=== PATIENT | male | born 1950 | race Caucasian/White ===

== ENCOUNTER 2018-10-24 18:31 | Inpatient (IN) | payer OTHER ==
[~2018-10-24 18:31] MED LIST: Iopamidol 370 76% 100 ML VIAL ONE
[2018-10-24] MEDS ORDERED: Morphine 4 MG/ML VIAL ONE ×2 (19:18→20:19)
[2018-10-24] MEDS ORDERED: Ondansetron PF 4 MG/2 ML Vial ONE (19:18)
[2018-10-24 19:30] LABS: #Eosinphils 0.4 thou/uL (0.0-0.7); #Lymphocytes 0.9 thou/uL (1.20-3.40); #Neutrophils 6.1 thou/uL (1.40-6.50); %Basophils 0.5 % (0.0-1.0); %Lymphocytes 10.5 % (21.0-51.0); %Monocytes 11.8 % (0.0-10.0); %Neutrophils 72.2 % (42.0-75.0); Hemoglobin 13.5 g/dL (14.0-18.0); Mean Corpuscular HGB CONC 32.8 g/dL (32.0-36.0); Mean Corpuscular Hemoglobin 31.9 pg (27.0-31.0); Mean Platelet Volume 8.7 fL (7.4-10.4); Platelet Count 73 thou/uL (130-400); RBC Distribution Width 12.7 % (11.5-14.5); Red Blood Cell (RBC) Count 4.22 mill/uL (4.70-6.10); White Blood Cell (WBC) Count 8.4 thou/uL (4.8-10.8)
[2018-10-24 19:35] LABS: MDiff Complete? YES; Platelet Morphology Comment Appears Decreased; Polychromasia SLIGHT = 2-3 cells (100X) (0-2/hpf)
[2018-10-24 19:51] LABS: ALT (SGPT) 32 U/L (8-55); AST (SGOT) 50 U/L (5-34); Albumin 2.9 g/dL (3.4-4.8); Alkaline Phosphatase 117 U/L (40-150); Anion Gap 11 mmol/L (10-20); BUN (Urea Nitrogen) 10 mg/dL (8.4-25.7); Bilirubin, Total 2.1 mg/dL (0.2-1.2); Calc. Creatinine Clearance 0 mL/min (70-130); Calcium 8.1 mg/dL (7.8-10.44); Carbon Dioxide 22 mmol/L (23-31); Chloride 105 mmol/L (98-107); Estimated GFR-MDRD Greater than 90; Globulin 3.1 g/dL (2.4-3.5); Glucose 90 mg/dL (80-115); Lipase 78 U/L (8-78); Sodium 134 mmol/L (136-145)
[2018-10-24 19:56] LABS: Bilirubin Small (Negative); Blood, Urine Large (Negative); Glucose, Urine (Dipstick) Negative (Negative); Leukocyte Negative (Negative); Nitrite Negative (Negative); Protein, Urine (Dipstick) 100 mg/dL (Neg-Trace)
[2018-10-24 19:58] LABS: Clarity Cloudy (Clear)
[2018-10-24 20:02] LABS: RBC/HPF Greater than 50 HPF (0-3)
[2018-10-24 20:03] LABS: Bacteria/HPF None Seen HPF (None Seen); Squamous Epithelial 0-3 HPF (0-3)
[2018-10-24] MEDS ORDERED: Metoclopramide HCl 10 MG/2 ML VIAL ONE (20:19)
--- NOTE | 2018-10-24 20:21 | CT ---
CT Abdomen Pelvis W Con History: Abdominal pain Comparison: None. Findings: Lung bases are clear. No pericardial effusion. Large paraesophageal varices. Highly cirrhotic nodular appearance of the liver. There is cholelithias is. Spleen is markedly enlarged. Pancreas is unremarkable. Aortic contour is nonaneurysmal. Small volume free fluid within the pelvis. Mild wall thickening of the sigmoid colon although somewha t under distended. Congestive changes of the mesentery. Congestive changes of the descending colon, transverse colon, and ascending colon. The appendix is visualized and is normal. Mild thickening of the right calyceal urothelium with a large dependent calculus measuring 1.5 x 5 x 1.7 cm. Even given its size, no significant obstruction. Hypodensity inferior pole right kidney not definitively a simple cyst. Likely reactive retroperitonea l periaortic adenopathy. Evidence of prior right inguinal hernia repair. Severe facet arthrosis of the lumbar spine. Impression: 1. Severe hepatic cirrhosis with portal hypertension, paraesophageal varices, and splenomegaly. The p ortal hypertension and cirrhosis causes vascular congestion of the bowel mesentery and retroperitoneum. Given the cirrhosis, a screening ultrasound for underlying mass not emergently is re commended. 2. Large right renal pelvis calculus with urothelial thickening without evidence of obstruction. 3. Inferior right renal pole hypodensity not definitively a cyst. This can be interrogated on subsequ ent ultrasound.
[2018-10-24 23:06] LABS: Lactic Acid 2.4 mmol/L (0.5-2.2)
[2018-10-25 00:28] VITALS: BMI 30.3
[2018-10-25] MEDS ORDERED: Acetaminophen 325 MG TAB PO PRN (00:41)
[2018-10-25] MEDS ORDERED: Ondansetron ODT 4 MG TAB SL PRN (00:41)
[2018-10-25] MEDS ORDERED: Ondansetron PF 4 MG/2 ML Vial IVP PRN (00:41)
[2018-10-25] MEDS: Sodium Chloride 0.9% 1,000 ML IV SCH ×3 (01:21→22:31)
[2018-10-25 01:23] LABS: Lactic Acid 2.6 mmol/L (0.5-2.2)
[2018-10-25] MEDS: Morphine 2 MG/ML SYRINGE SLOW IVP PRN ×5 (01:58→23:09)
[2018-10-25] MEDS ORDERED: cefTRIAXone\\ROCEPHIN 1 GM in Sodium Chloride 0.9% 100 ML IVPB SCH (02:00)
[2018-10-25] MEDS ORDERED: Loperamide HCl 2 MG CAP PO PRN (04:08)
--- NOTE | 2018-10-25 05:15 | HP ---
PRIMARY CARE DOCTOR: The patient is in senior care. CODE STATUS: Full code. TIME OF EVALUATION: 3:40 a.m. CHIEF COMPLAINT: Dysphagia, abdominal pain. HISTORY OF PRESENT ILLNESS: A 67-year-old male patient with past medical history of cirrhosis of the liver, hep C, kidney stones, urinary tract infection, hypertension. He came to the hospital after having abdominal pain in the left lower quadrant that has been on for 3 days. No clear triggers, no alleviating factors, no fever, when present is 10/10. Needing opioid medication for optimal control. Associated with nausea and vomiting. REVIEW OF SYSTEMS: CONSTITUTIONAL: No fever or chills. The patient has generalized weakness. RESPIRATORY: No cough, sputum production, shortness of breath. CARDIOVASCULAR: No chest pain or palpitation. GASTROINTESTINAL: The patient has nausea and vomiting. No diarrhea. The patient reported abdominal pain as described in HPI. SCRAP WORKER: No dizziness, headache, or feeling lightheaded. GENITOURINARY: No burning on urination. EXTREMITIES: No leg swelling. All other systems were reviewed and negative except for the findings mentioned above. PAST MEDICAL HISTORY: As mentioned in the HPI. PAST SURGICAL HISTORY: The patient has no surgical history. SOCIAL HISTORY: No alcohol. No drugs. No smoking history. KNOWN ALLERGIES: No known drug allergies. FAMILY HISTORY: Reviewed and noncontributory to current presentation. Father had cancer. REPORTED MEDICATIONS: 1. Carvedilol. 2. Lasix. 3. Lisinopril. 4. Cyanocobalamin. 5. Folic acid. 6. Lactulose. 7. Loperamide. 8. Promethazine. 9. Xifaxan. 10. Bactrim DS. PHYSICAL EXAMINATION: VITAL SIGNS: On presentation; blood pressure 116/79 with heart rate of 75, respiratory rate was 16, temperature 98.9, pain was 10/10, oxygen saturation was 96% on room air. GENERAL: The patient is alert, oriented, no acute distress. HEENT: Eyes, normal conjunctivae. Moist oral mucosa. Anicteric. No JVD. RESPIRATORY: Bilateral air entry. No rales. No wheezes. Symmetric expansion. CARDIOVASCULAR: Normal rate, regular rhythm. No murmurs. No gallop. No edema. ABDOMEN: Soft. Normal bowel sounds. The patient has diffuse tenderness in the lower abdomen. MUSCULOSKELETAL: He has baseline range of motion and strength. SKIN: Warm and intact. No pallor. No rash. No redness. Capillary refill seems to be intact. NEURO: No evidence of any new focal weakness. Cranial nerves seems to be intact. PSYCH: The patient is in good mood. No anxiety. Optimal judgment. IMAGING: Abdomen and pelvis CT were done. The patient has severe hepatic cirrhosis with portal hypertension, paraesophageal varices, and splenomegaly with portal hypertension and cirrhosis causes vascular congestion of the bowel mesentery, and retroperitoneum. Given the cirrhosis, renal ultrasound for the underlying mass recommended. Large right renal pelvis calculus with urothelial thickening with no evidence of obstruction. Inferior right renal pole hypodensity, not definitively a cyst, this can be interrogated on subsequent ultrasound. LABORATORY DATA: Labs were reviewed. The patient's white count is 8.4, hemoglobin 13.5, MCV 97, platelet count 73. Chemistry; sodium 134, potassium 4.0, chloride 105, carbon dioxide 22, anion gap 11, BUN and creatinine were normal. GFR greater than 90. Lactic acid 2.4, the second one 2.6. Total bilirubin 2.1, AST 50, ALT 32, alkaline phosphatase 117, albumin 2.9, globulin 3.1. Urine; white count 11 to 20 and rbc's greater than 50. ASSESSMENT AND PLAN: The patient will be placed in the hospital with following medical problems. 1. Urinary tract infection. The patient is on antibiotics. We will follow cultures and adjust antibiotics as per sensitivity. 2. Cirrhosis of the liver. We will reconcile home medications. This is chronic, seems to be stable. 3. Abdominal pain that was severe, needing opioid medication for optimal control. Unclear if the patient may have any other intraabdominal problems. Initially was concerned for mesenteric ischemia since the abdominal pain might be associated with pain. We will monitor. We will treat symptomatically. The patient is already on antibiotics. 4. Thrombocytopenia, likely secondary to underlying liver disease. No bleeding. We will monitor. 5. Hyponatremia, sodium 134. We will monitor. No need for any acute intervention at this point. 6. Lactic acidosis, likely secondary to underlying liver cirrhosis. The patient also has an underlying infection. We will treat underlying condition. 7. Hyperbilirubinemia, likely secondary to liver cirrhosis, reconcile home medications. We will follow liver cirrhosis treatment. 8. Deep venous thrombosis prophylaxis. Job ID: [id number]
[2018-10-25 05:49] LABS: #Eosinphils 0.5 thou/uL (0.0-0.7); #Monocytes 1.6 thou/uL (0.11-0.59); #Neutrophils 8.8 thou/uL (1.40-6.50); %Basophils 0.3 % (0.0-1.0); %Eosinophils 4.4 % (0.0-10.0); %Lymphocytes 8.6 % (21.0-51.0); %Neutrophils 73.9 % (42.0-75.0); Hemoglobin 12.8 g/dL (14.0-18.0); Mean Corpuscular HGB CONC 32.7 g/dL (32.0-36.0); Mean Corpuscular Hemoglobin 32.1 pg (27.0-31.0); Mean Corpuscular Volume 98.3 fL (78.0-98.0); Mean Platelet Volume 8.6 fL (7.4-10.4); Platelet Count 73 thou/uL (130-400); RBC Distribution Width 12.7 % (11.5-14.5); Red Blood Cell (RBC) Count 3.98 mill/uL (4.70-6.10)
[2018-10-25 05:59] LABS: Lactic Acid 2.1 mmol/L (0.5-2.2)
[2018-10-25] MEDS ORDERED: Piperacillin/Tazobactam 4.5 GM in Sodium Chloride 0.9% 100 ML IVPB SCH (06:00)
[2018-10-25 06:03] LABS: Anion Gap 10 mmol/L (10-20); BUN (Urea Nitrogen) 10 mg/dL (8.4-25.7); Calc. Creatinine Clearance 121 mL/min (70-130); Calcium 7.5 mg/dL (7.8-10.44); Carbon Dioxide 23 mmol/L (23-31); Chloride 105 mmol/L (98-107); Estimated GFR-MDRD Greater than 90; Glucose 97 mg/dL (80-115); Potassium 4.5 mmol/L (3.5-5.1); Sodium 133 mmol/L (136-145)
[2018-10-25 08:34] LABS: ALT (SGPT) 27 U/L (8-55); AST (SGOT) 41 U/L (5-34); Albumin 2.6 g/dL (3.4-4.8); Alkaline Phosphatase 105 U/L (40-150); Bilirubin, Direct 0.8 mg/dL (0.1-0.3); Bilirubin, Total 1.5 mg/dL (0.2-1.2); Protein, Total 5.4 g/dL (5.8-8.1)
[2018-10-25] MEDS: Furosemide 20 MG TAB PO SCH ×2 (08:37→23:27)
[2018-10-25] MEDS: Folic Acid 1 MG TAB PO SCH (08:39)
[2018-10-25] MEDS: Lisinopril 20 MG TAB PO SCH (08:39)
[2018-10-25] MEDS: Piperacillin/Tazobactam 4.5 GM in Sodium Chloride 0.9% 100 ML IVPB SCH ×2 (08:39→17:17)
[2018-10-25] MEDS: Carvedilol 3.125 MG TAB PO SCH ×2 (08:39→22:23)
[2018-10-25] MEDS ORDERED: Cyanocobalamin 1000 MCG/ML VIAL IM SCH (09:00)
[2018-10-25] MEDS: Rifaximin 550 MG TAB PO SCH ×2 (09:00→21:00)
[2018-10-25] MEDS ORDERED: Promethazine 25 MG TAB PO SCH (09:00)
[2018-10-25 12:35] LABS: INR-International Normal Ratio 1.5; PTT 34.6 SEC (22.9-36.1); Prothrombin Time 18.2 SEC (12.0-14.7)
--- NOTE | 2018-10-25 13:07 | ULT ---
US Gallbladder RUQ: 10/25/2018 11:42 AM CLINICAL HISTORY: Abdominal pain with cirrhosis. STUDY: Limited right upper quadrant ultrasound of abdomen. COMPARISON: CT abdomen/pelvis 10/24/2018 FINDINGS: Liver: Size: Normal. Echogenicity: Increased Contour: Nodular consistent with cirrhosis. Mass: None. Bile ducts: No intrahepatic or extrahepatic biliary dilatation. Common bile duct measures 5 mm. Gallbladder: Cholelithiasis. Pancreas: Head and body appear normal; tail obscured by bowel gas. Right kidney: No pelvicalyceal dilatation. The right renal cyst seen on CT is only partially visualiz ed. Right kidney measuring 11.9 cm in length. IMPRESSION: 1. Cirrhosis without suspicious liver mass 2. Cholelithiasis 3. Right renal cyst
--- NOTE | 2018-10-25 13:27 | RAD ---
EXAM: Chest 2 views: HISTORY: Fever and epigastric abdominal pain COMPARISON: None. FINDINGS: There is a normal-sized cardiomediastinal silhouette. There is no evidence of consolidation, mass, or pleural effusion. Degenerative changes are seen in the spine. IMPRESSION: No evidence of acute cardiopulmonary disease
--- NOTE | 2018-10-25 16:37 | PDOC.HOSPP ---
- Subjective Encounter Date: 10/25/18 Encounter Time: 13:35 Subjective: Patient with LLQ abdominal pain, has been receiving morphine which he states has been helping. His pain recurs and then gradually worsens. Currently it is an 8/10 in severity, relieved to a 2/10 with morphine. States his pain is intermittent and feels as if someone is gripping his insides. Denies any n/v. Has been experiencing diarrhea. No blood in the stool. Reports suprapubic discomfort as well as right flank pain, he is aware he has a stone, states it is chronic. No chest pain, palpitations or shortness of breath. - Objective Vital Signs & Weight: Vital Signs (12 hours) Temp Pulse Resp BP Pulse Ox 10/25/18 15:53 98.6 F 78 20 124/59 L 95 10/25/18 13:36 99.1 F 79 20 115/61 96 10/25/18 07:48 99.6 F 83 18 113/61 95 Weight Admit Weight 205 lb 9.6 oz Weight 205 lb 9.6 oz I&O: 10/24/18 10/25/18 10/26/18 06:59 06:59 06:59 Intake Total 898 Balance 898 Result Diagrams: 10/28/18 06:07 10/27/18 06:13 ROS - Review of Systems Constitutional: reports: fever (Low grade temp yesterday.), weakness Eyes: denies: pain, vision change, conjunctivae inflammation, eyelid inflammation, redness, other ENT: denies: ear pain, ear discharge, nose pain, nose discharge, nose congestion , mouth pain, mouth swelling, throat pain, throat swelling, other Respiratory: denies: cough, dry, shortness of breath, hemoptysis, SOB with excertion, pleuritic pain, sputum, wheezing, other Cardiovascular: denies: chest pain, palpitations, orthopnea, paroxysmal noc. dyspnea, edema, light headedness, other Gastrointestinal: reports: abdominal pain, diarrhea Genitourinary: denies: dysuria, frequency, incontinence, hematuria, retention, other Musculoskeletal: denies: neck pain, shoulder pain, arm pain, back pain, hand pain, leg pain, foot pain, other Skin: denies: rash, lesions, abrahan, bruising, other Neurological: denies: weakness, numbness, incoordination, change in speech, confusion, seizures, other - Medication Medications: Active Medications Generic Name Dose Route Start Last Admin Trade Name Freq PRN Reason Stop Dose Admin Carvedilol 3.125 mg 10/25/18 09:00 10/25/18 08:39 Coreg PO 3.125 mg BID CECY Administration Cyanocobalamin 100 mcg 10/25/18 09:00 10/25/18 08:35 Vitamin B-12 IM Not Given Q28D [facility] Folic Acid 1 mg 10/25/18 09:00 10/25/18 08:39 Folvite PO 1 mg DAILY CECY Administration Furosemide 20 mg 10/25/18 09:00 10/25/18 08:37 Lasix PO Not Given BID CECY Sodium Chloride 1,000 mls @ 100 mls/hr 10/25/18 00:41 10/25/18 13:14 Normal Saline 0.9% IV 10/26/18 11:30 1,000 mls .Q10H CECY Administration Piperacillin Sod/Tazobactam 100 mls @ 200 mls/hr 10/25/18 08:00 10/25/18 08: 39 Sod 4.5 gm/ Sodium Chloride IVPB 100 mls Q8H CECY Administration Lactulose 20 gm 10/25/18 09:00 10/25/18 08:34 Lactulose PO Not Given BID [facility] Lisinopril 20 mg 10/25/18 09:00 10/25/18 08:39 Zestril PO 20 mg DAILY CECY Administration Morphine Sulfate 2 mg 10/25/18 01:35 10/25/18 16:24 Morphine SLOW IVP 2 mg Q4H PRN Administration Severe Pain (7-10) Promethazine HCl 25 mg 10/25/18 09:00 10/25/18 08:37 Phenergan PO Not Given BID [facility] Sodium Chloride 10 ml 10/25/18 09:00 10/25/18 08:45 Flush - Normal Saline IVF Not Given Q12HR [facility] - Exam NAD, awake alert, ill appearing (appears to be in discomfort) Eye: PERRL, anicteric sclera ENT: normocephalic atraumatic, no oropharyngeal lesions, moist mucosa Neck: supple, symmetric, no JVD, no thyromegaly, no lymphadenopathy, no carotid bruit Heart: RRR, no murmur, no gallops, no rubs, normal peripheral pulses Respiratory: CTAB, no wheezes, no rales, no ronchi, normal chest expansion, no tachypnea, normal percussion Gastrointestinal: soft, non-tender, non-distended, normal bowel sounds, no palpable masses, no guarding, no rigidity, tender to palpation (LLQ and suprapubic region) Extremities: no cyanosis, no clubbing, no edema Skin: normal turgor, no lesions Neurological: CN's grossly intact, normal sensation to touch Musculoskeletal: normal tone, normal strength Hosp A/P (1) Abdominal pain Code(s): R10.9 - UNSPECIFIED ABDOMINAL PAIN Status: Acute Qualifiers: Abdominal location: generalized Qualified Code(s): R10.84 - Generalized abdominal pain Plan: s/p CT: severe hepatic cirrhosis with portal hypertension, paraesophageal varices and splenomegaly. Portal hypertension and cirrhosis vascular congestion of the bowel mesentery. Cholelithiasis present. Pancreas unremarkable. Spleen markedly enlarged. small volume free fluid within pelvis. Mild wall thickening of the sigmoid colon, congestive changes of mesentery, descending colon, ascending colon. Appendix normal. Mild thickening of right calceal urothelium with large dependent calculus measuring 1.5x5x1.7 cm, without obstruction. Hypodensity inferior pole right kidney, likely reactive retroperitoneal adenopathy. No evidence of any abnormality to explain LLQ pain. Given UTI and suprapubic discomfort, post void bladder scan requested to ensure no retention. Patient states only urinating 1/2 cup despite receiving IV fluids. Procalcitonin added to labs. Abdo US and CXR requested. (2) UTI (urinary tract infection) Status: Acute Plan: Continue abx. Urine culture requested. (3) Diarrhea Code(s): R19.7 - DIARRHEA, UNSPECIFIED Status: Acute Plan: Patient is on lactulose. Stool cultures/c.diff requested. (4) Hepatitis C Code(s): B19.20 - UNSPECIFIED VIRAL HEPATITIS C WITHOUT HEPATIC COMA Status: Chronic Qualifiers: Viral hepatitis chronicity: chronic - Plan DVT proph w/SCDs Will discuss further with Dr. Gustafson. Will place patient on clear liquid diet. Agree and discussed with Silvia Peña
[2018-10-25] MEDS ORDERED: Promethazine 25 MG TAB PO PRN (17:38)
[2018-10-25] MEDS ORDERED: Metoclopramide HCl 10 MG/2 ML VIAL IVP PRN (17:52)
[2018-10-25] MEDS: Vancomycin HCl 25 MG/ML Oral PO SCH (18:14)
[2018-10-25] MEDS: traMADol HCl 50 MG TAB PO PRN (18:36)
--- NOTE | 2018-10-25 18:50 | PDOC.EVN ---
Event Note - Event Note Event Note: Mr. Chavez was seen along with Silvia Clark PA-c. He is complaining of diarrhea , and lower abdominal pain. On exam it is noted that he has suprapubic tenderness as well as left lower quadrant tenderness. The pain seem out of proportion to the exam. His C. Diff has become positive- will treat for C. Diff colitis, but will need to have a low index of suspicion for ischemic bowel.
[2018-10-25] MEDS ORDERED: Prevnar 13-Val Conj/PF 0.5 ML SYRINGE IM ONE (21:00)
[2018-10-26] MEDS: Piperacillin/Tazobactam 4.5 GM in Sodium Chloride 0.9% 100 ML IVPB SCH ×2 (00:38→08:24)
[2018-10-26] MEDS: Vancomycin HCl 25 MG/ML Oral PO SCH ×5 (03:01→20:31)
[2018-10-26] MEDS: traMADol HCl 50 MG TAB PO PRN ×3 (04:04→16:47)
[2018-10-26 06:33] LABS: #Basophils 0.1 thou/uL (0.0-0.2); #Lymphocytes 1.5 thou/uL (1.20-3.40); #Monocytes 1.4 thou/uL (0.11-0.59); #Neutrophils 8.7 thou/uL (1.40-6.50); %Basophils 0.4 % (0.0-1.0); %Eosinophils 7.7 % (0.0-10.0); %Lymphocytes 12.2 % (21.0-51.0); %Neutrophils 68.8 % (42.0-75.0); Hemoglobin 12.1 g/dL (14.0-18.0); Mean Corpuscular HGB CONC 32.6 g/dL (32.0-36.0); Mean Corpuscular Hemoglobin 32.1 pg (27.0-31.0); Mean Corpuscular Volume 98.4 fL (78.0-98.0); Mean Platelet Volume 8.4 fL (7.4-10.4); Platelet Count 73 thou/uL (130-400); RBC Distribution Width 12.7 % (11.5-14.5); Red Blood Cell (RBC) Count 3.77 mill/uL (4.70-6.10); White Blood Cell (WBC) Count 12.6 thou/uL (4.8-10.8)
[2018-10-26 06:41] LABS: Anion Gap 8 mmol/L (10-20); BUN (Urea Nitrogen) 13 mg/dL (8.4-25.7); Calc. Creatinine Clearance 121 mL/min (70-130); Calcium 7.5 mg/dL (7.8-10.44); Carbon Dioxide 21 mmol/L (23-31); Chloride 109 mmol/L (98-107); Estimated GFR-MDRD Greater than 90; Glucose 87 mg/dL (80-115); Potassium 3.8 mmol/L (3.5-5.1); Sodium 134 mmol/L (136-145)
[2018-10-26] MEDS: Carvedilol 3.125 MG TAB PO SCH ×2 (08:23→20:31)
[2018-10-26] MEDS: Furosemide 20 MG TAB PO SCH ×2 (08:23→15:16)
[2018-10-26] MEDS: Acetaminophen 325 MG TAB PO PRN ×2 (08:23→16:47)
[2018-10-26] MEDS: Folic Acid 1 MG TAB PO SCH (08:23)
[2018-10-26] MEDS: Lisinopril 20 MG TAB PO SCH (08:23)
[2018-10-26] MEDS: Sodium Chloride 0.9% 1,000 ML IV SCH (08:25)
[2018-10-26] MEDS: Rifaximin 550 MG TAB PO SCH ×2 (09:00→21:00)
[2018-10-26 09:35] LABS: Lactic Acid 1.7 mmol/L (0.5-2.2)
[2018-10-26 09:41] LABS: ALT (SGPT) 26 U/L (8-55); AST (SGOT) 36 U/L (5-34); Albumin 2.5 g/dL (3.4-4.8); Alkaline Phosphatase 89 U/L (40-150); Bilirubin, Direct 0.8 mg/dL (0.1-0.3); Bilirubin, Total 1.5 mg/dL (0.2-1.2); Protein, Total 5.1 g/dL (5.8-8.1)
--- NOTE | 2018-10-26 12:48 | CT ---
CT ANGIOGRAM ABDOMEN WITH IV CONTRAST AND 3D RECONSTRUCTIONS: HISTORY: Elevated white blood cell count and abdominal pain. Evaluate for mesenteric ischemia. COMPARISON: 10/24/2018. FINDINGS: Again noted is a small left pleural effusion and associated passive atelectasis. There is minimal at electasis at the right lung base. Again noted is cirrhotic morphology of the liver which is small in volume. There is a subcentimeter hypodense focus again seen in the caudate lobe of the liver which is too small to characterize. Ther e is a small enhancing lesion seen within the inferior aspect posterior segment right hepatic lobe me asuring 2 cm also present on prior exam and unchanged. This could be related to regenerating nodule, small hepatocellular carcinoma could not be entirely excluded. This is unable to be further evaluat ed on this exam. The spleen remains enlarged, and there are very large and multiple esophageal varices with varices in the region of gastrohepatic ligament. The gallbladder is distended measuring 10.8 cm in length. There is evidence of cholelithiasis. Ther e is a suggestion of mild gallbladder wall thickening and edema with mild adjacent inflammatory rodriguez es seen. This could potentially be related to cholecystitis in the correct clinical scenario. There is a small amount of free fluid seen in each paracolic gutter also seen on the prior study but mildly increased from that exam. A small amount of free fluid is seen in the central pelvis with mil d mesenteric edema also again seen. The mild mesenteric edema may be related to portal hypertension. The pancreas, bilateral adrenal glands, and left kidney demonstrate a normal CT appearance. Inferior pole right renal cystic lesion is again seen which, again, cannot be characterized as a simple cyst. There is a large calculus in the right renal pelvis without overt hydronephrosis. There is mild th ickening of the urothelium of the renal pelvis. Vascular calcifications are seen in the abdominal aorta involving the common iliac arteries. The celiac and superior mesenteric arteries are patent. The origin of the RUSTAM is not well seen due t o dense vascular calcifications, but there is probably mild narrowing at the origin of the inferior m esenteric artery. There are 2 patent left renal arteries with a single patent right renal artery. There is mild increase in number of retroperitoneal lymph nodes probably reactive in origin. Tiny fat-containing umbilical hernia is again seen. Degenerative changes are noted in the spine. There is suggested mild colonic wall thickening some of which is probably related to incomplete diste ntion, but colitis is a possibility. Loops of small bowel are normal in caliber without bowel wall t hickening appreciated. IMPRESSION: 1. Evidence of cirrhosis with portal hypertension, paraesophageal varices, and splenomegaly again pr esent. 2. Enhancing mass measuring 2 cm in the right hepatic lobe. This could be related to regenerating n odule, but hepatocellular carcinoma is a possibility. Correlation with alphafetoprotein level is rec ommended. 3. Distention of the gallbladder with cholelithiasis and mild gallbladder wall thickening. There is minimal adjacent stranding, but there is generalized mesenteric edema likely related to vascular con gestion secondary to portal hypertension. However, cholecystitis in the correct clinical scenario co uld not be entirely excluded. 4. Large calculus right renal pelvis without overt hydronephrosis. 5. Stable cystic lesion inferior pole right kidney which cannot be characterized as a simple cyst ba sed on this exam. 6. Suggested mild colonic wall thickening, some of which could be related to incomplete distention, but findings are worrisome for colitis which may be infectious or inflammatory in etiology. 7. Small amount of free fluid and mesenteric edema again likely related to vascular congestion secon edgardo to portal hypertension. 8. The celiac and superior mesenteric arteries are patent with at least mild narrowing at the origin of the inferior mesenteric artery. 9. Small fat-containing umbilical hernia. 10. Small left pleural effusion with elevation of the left hemidiaphragm. POS: DEEPAC
[2018-10-26] MEDS ORDERED: Saccharomyces boulardii 250 MG CAP PO SCH (15:45)
[2018-10-26] MEDS ORDERED: ISOVUE-370 76%-LOCM 1 ML ONE (16:19)
--- NOTE | 2018-10-26 17:18 | PDOC.HOSPP ---
- Subjective Encounter Date: 10/26/18 Encounter Time: 17:17 Subjective: Patient with persisting abdominal pain and severe diarrhea. He states he is trying not to ask for morphine and doing is best to tolerate the pain. The tramadol/acetaminophen has helped to ease it. Reports diffuse abdominal discomfort. No n/v. No fevers or chills. Denies any chest pain or sob. - Objective Vital Signs & Weight: Vital Signs (12 hours) Temp Pulse Resp BP BP Pulse Ox 10/26/18 16:16 99 10/26/18 15:57 97.7 F 77 17 137/68 99 10/26/18 12:00 97.6 F 66 16 92/50 L 96 10/26/18 08:23 120/56 L 10/26/18 08:15 97.3 F L 74 18 120/56 L 96 Weight Admit Weight 205 lb 9.6 oz Weight 205 lb 9.6 oz I&O: 10/25/18 10/26/18 10/27/18 06:59 06:59 06:59 Intake Total 034 571 9215 Output Total 6 Balance 444 535 0130 Result Diagrams: 10/26/18 06:19 10/26/18 06:19 ROS - Review of Systems Constitutional: reports: chills, malaise. denies: fever, sweats, weakness, other Eyes: denies: pain, vision change, conjunctivae inflammation, eyelid inflammation, redness, other ENT: denies: ear pain, ear discharge, nose pain, nose discharge, nose congestion , mouth pain, mouth swelling, throat pain, throat swelling, other Respiratory: denies: cough, dry, shortness of breath, hemoptysis, SOB with excertion, pleuritic pain, sputum, wheezing, other Cardiovascular: denies: chest pain, palpitations, orthopnea, paroxysmal noc. dyspnea, edema, light headedness, other Gastrointestinal: reports: abdominal pain, diarrhea. denies: nausea, vomitting , constipation, melena, hematochezia, other Genitourinary: denies: dysuria, frequency, incontinence, hematuria, retention, other Musculoskeletal: denies: neck pain, shoulder pain, arm pain, back pain, hand pain, leg pain, foot pain, other Skin: denies: rash, lesions, abrahan, bruising, other Neurological: denies: weakness, numbness, incoordination, change in speech, confusion, seizures, other - Medication Medications: Active Medications Generic Name Dose Route Start Last Admin Trade Name Freq PRN Reason Stop Dose Admin Acetaminophen 325 mg 10/25/18 07:29 10/26/18 16:47 Tylenol PO 325 mg Q4H PRN Administration Headache/Fever or Pain Carvedilol 3.125 mg 10/25/18 09:00 10/26/18 08:23 Coreg PO 3.125 mg BID [facility] Administration Cyanocobalamin 100 mcg 10/25/18 09:00 10/25/18 08:35 Vitamin B-12 IM Not Given Q28D [facility] Folic Acid 1 mg 10/25/18 09:00 10/26/18 08:23 Folvite PO 1 mg DAILY [facility] Administration Furosemide 20 mg 10/26/18 09:00 10/26/18 15:16 Lasix PO 20 mg 0900,1400 [facility] Administration Lisinopril 20 mg 10/25/18 09:00 10/26/18 08:23 Zestril PO 20 mg DAILY [facility] Administration Metoclopramide HCl 10 mg 10/25/18 17:52 10/25/18 22:27 Reglan IVP 10 mg Q6H PRN Administration Nausea/Vomiting Morphine Sulfate 2 mg 10/25/18 01:35 10/25/18 23:09 Morphine SLOW IVP 2 mg Q4H PRN Administration Severe Pain (7-10) Saccharomyces Boulardii 250 mg 10/26/18 15:45 10/26/18 16:47 Florastor PO 10/26/18 17:45 250 mg NOW CECY Administration Sodium Chloride 10 ml 10/25/18 09:00 10/26/18 08:25 Flush - Normal Saline IVF Not Given Q12HR [facility] Tramadol HCl 50 mg 10/25/18 17:49 10/26/18 16:47 Ultram PO 50 mg Q4H PRN Administration Pain Vancomycin HCl 125 mg 10/26/18 03:00 10/26/18 15:16 First Vancomycin PO 11/04/18 21:01 5 ml 0300,0900,1500,2100 [facility] Administration - Exam NAD, awake alert, ill appearing General - other findings: Patient appears cachectic with facial wasting. Eye: PERRL, anicteric sclera ENT: normocephalic atraumatic, no oropharyngeal lesions ENT - other findings: Poor dentition Neck: supple, symmetric, no lymphadenopathy Heart: RRR, no murmur Respiratory: CTAB, no wheezes, no rales, no ronchi, normal chest expansion Gastrointestinal: soft, no palpable masses, tender to palpation Gastrointestinal - other findings: hyperactive bowel sounds. Extremities: no cyanosis, no clubbing, no edema Skin: no lesions, no rashes Skin - other findings: Patient appears pale Neurological: CN's grossly intact, normal sensation to touch Musculoskeletal: normal tone, normal strength Psychiatric: normal affect, normal behavior, A&O x 3 Hosp A/P (1) C. difficile colitis Code(s): A04.72 - ENTEROCOLITIS D/T CLOSTRIDIUM DIFFICILE, NOT SPCF RECUR Status: Acute Plan: Symptoms persisting without much improvement this morning. Patient therefore underwent CTA to assess for messenteric ischemia. States after contrast given, felt immediate relief. Pain has recurred but not as severe. Discussed with Dr. Rudolph, advised to add-on Flagyl as well as probiotic. (2) Abdominal pain Code(s): R10.9 - UNSPECIFIED ABDOMINAL PAIN Status: Acute Plan: Morphine discontinued, BP slightly low. Will use tramadol for pain. (3) Diarrhea Code(s): R19.7 - DIARRHEA, UNSPECIFIED Status: Acute (4) Hepatitis C Code(s): B19.20 - UNSPECIFIED VIRAL HEPATITIS C WITHOUT HEPATIC COMA Status: Chronic Plan: S/p treatment, was seeing a liver specialist in [place]. AFP added on. - Plan Continue clear liquid diet. ADDENDUM: CTA done, showed a mass in the liver, patient states he was told he had a mass before. Unsure what it was at that time. No evidence of messenteric ischemia. Noted to have colitis, associated with cdiff infection. Continue abx. Continue to monitor. BP improved. If becomes hypotensive, will require additional fluid, for now encourage oral fluid intake.
[2018-10-26] MEDS: metroNIDAZOLE 500 MG TAB PO SCH (20:31)
[2018-10-27] MEDS: Vancomycin HCl 25 MG/ML Oral PO SCH ×4 (02:08→21:06)
[2018-10-27 06:42] LABS: #Basophils 0.1 thou/uL (0.0-0.2); #Eosinphils 1.3 thou/uL (0.0-0.7); #Lymphocytes 1.8 thou/uL (1.20-3.40); #Monocytes 1.1 thou/uL (0.11-0.59); #Neutrophils 5.7 thou/uL (1.40-6.50); %Basophils 0.9 % (0.0-1.0); %Eosinophils 12.6 % (0.0-10.0); %Lymphocytes 18.2 % (21.0-51.0); %Neutrophils 57.3 % (42.0-75.0); Mean Corpuscular HGB CONC 32.4 g/dL (32.0-36.0); Mean Corpuscular Hemoglobin 31.7 pg (27.0-31.0); Mean Platelet Volume 8.4 fL (7.4-10.4); Platelet Count 91 thou/uL (130-400); RBC Distribution Width 12.8 % (11.5-14.5); Red Blood Cell (RBC) Count 4.09 mill/uL (4.70-6.10)
[2018-10-27 06:56] LABS: Anion Gap 8 mmol/L (10-20); BUN (Urea Nitrogen) 13 mg/dL (8.4-25.7); Calc. Creatinine Clearance 121 mL/min (70-130); Calcium 7.7 mg/dL (7.8-10.44); Carbon Dioxide 25 mmol/L (23-31); Chloride 106 mmol/L (98-107); Estimated GFR-MDRD Greater than 90; Glucose 81 mg/dL (80-115); Sodium 135 mmol/L (136-145)
[2018-10-27] MEDS: Rifaximin 550 MG TAB PO SCH (09:00)
[2018-10-27] MEDS: metroNIDAZOLE 500 MG TAB PO SCH ×4 (09:12→23:58)
[2018-10-27] MEDS: Lisinopril 20 MG TAB PO SCH (09:12)
[2018-10-27] MEDS: Saccharomyces boulardii 250 MG CAP PO SCH (09:12)
[2018-10-27] MEDS: Furosemide 20 MG TAB PO SCH ×2 (09:13→14:30)
[2018-10-27] MEDS: Carvedilol 3.125 MG TAB PO SCH ×2 (09:13→21:06)
[2018-10-27] MEDS: Folic Acid 1 MG TAB PO SCH (09:13)
--- NOTE | 2018-10-27 20:39 | PDOC.HOSPP ---
- Subjective Encounter Date: 10/27/18 Encounter Time: 20:30 Subjective: f/u for c. difficile colitis on Metronidazole/Vancomycin. + abd pain and cramping. - Objective Vital Signs & Weight: Vital Signs (12 hours) Temp Pulse Resp BP BP Pulse Ox 10/27/18 16:00 98.1 F 66 18 115/66 98 10/27/18 11:52 98.2 F 60 18 111/69 97 10/27/18 09:12 114/70 10/27/18 09:06 98 Weight Admit Weight 205 lb 9.6 oz Weight 205 lb 9.6 oz I&O: 10/26/18 10/27/18 10/28/18 06:59 06:59 06:59 Intake Total 440 2610 1500 Output Total 6 Balance 434 2610 1500 Result Diagrams: 10/27/18 06:13 10/27/18 06:13 Additional Labs: Microbiology 10/25/18 Unknown Stool - Pending C. difficile GDH Antigen & Toxins - Final 10/25/18 Unknown Stool Stool Lactoferrin - Final 10/25/18 Unknown Stool Rapid Parasite Screen - Final 10/25/18 Unknown Stool Campylobacter Antigen Assay - Final 10/25/18 Unknown Stool Shiga Toxin Test - Final 10/24/18 19:32 Urine voided Urine Culture - Final NO GROWTH AT 36 HOURS 10/25/18 Unknown Stool Stool Culture - Preliminary 10/25/18 07:02 Venous blood - Right Hand Blood Culture - Preliminary NO GROWTH AT 48 HOURS 10/25/18 07:02 Venous blood - Left Hand Blood Culture - Preliminary NO GROWTH AT 48 HOURS Laboratory Tests 10/25/18 10/25/18 10/26/18 05:33 12:18 06:19 WBC 12.0 H Plt Count 73 L Sodium 134 L Carbon Dioxide 21 L Lactic Acid Ammonia 63 Tumor Marker AFP 10/26/18 10/26/18 10/26/18 06:19 09:12 13:09 WBC 12.6 H Plt Count 73 L Sodium Carbon Dioxide Lactic Acid 1.7 Ammonia Tumor Marker AFP 2.8 Radiology Reviewed by me: Yes (CTA abd - + cirrhosis, varices, patent vessels, + colitis) ROS - Medication Medications: Active Medications Generic Name Dose Route Start Last Admin Trade Name Freq PRN Reason Stop Dose Admin Acetaminophen 325 mg 10/25/18 07:29 10/26/18 16:47 Tylenol PO 325 mg Q4H PRN Administration Headache/Fever or Pain Carvedilol 3.125 mg 10/25/18 09:00 10/27/18 09:13 Coreg PO 3.125 mg BID [facility] Administration Cyanocobalamin 100 mcg 10/25/18 09:00 10/25/18 08:35 Vitamin B-12 IM Not Given Q28D [facility] Folic Acid 1 mg 10/25/18 09:00 10/27/18 09:13 Folvite PO 1 mg DAILY [facility] Administration Furosemide 20 mg 10/26/18 09:00 10/27/18 14:30 Lasix PO Not Given 0900,1400 [facility] Lisinopril 20 mg 10/25/18 09:00 10/27/18 09:12 Zestril PO 20 mg DAILY [facility] Administration Metoclopramide HCl 10 mg 10/25/18 17:52 10/25/18 22:27 Reglan IVP 10 mg Q6H PRN Administration Nausea/Vomiting Metronidazole 500 mg 10/27/18 18:00 10/27/18 18:15 Flagyl PO 500 mg Q6HR [facility] Administration Morphine Sulfate 2 mg 10/25/18 01:35 10/25/18 23:09 Morphine SLOW IVP 2 mg Q4H PRN Administration Severe Pain (7-10) Saccharomyces Boulardii 250 mg 10/27/18 09:00 10/27/18 09:12 Florastor PO 250 mg DAILY [facility] Administration Sodium Chloride 10 ml 10/25/18 09:00 10/27/18 09:16 Flush - Normal Saline IVF Not Given Q12HR [facility] Tramadol HCl 50 mg 10/25/18 17:49 10/26/18 16:47 Ultram PO 50 mg Q4H PRN Administration Pain Vancomycin HCl 125 mg 10/26/18 03:00 10/27/18 14:30 First Vancomycin PO 11/04/18 21:01 5 ml 0300,0900,1500,2100 [facility] Administration - Exam NAD, awake alert Eye: PERRL, anicteric sclera ENT: normocephalic atraumatic, no oropharyngeal lesions Neck: supple, symmetric, no JVD, no thyromegaly, no lymphadenopathy Heart: RRR, no murmur, no gallops, no rubs, normal peripheral pulses Respiratory: CTAB, no wheezes, no rales, no ronchi, normal chest expansion Gastrointestinal: soft, non-distended, normal bowel sounds, no palpable masses, no guarding Gastrointestinal - other findings: mild TTP diffusely Extremities: no cyanosis, no clubbing, no edema Skin: normal turgor Neurological: CN's grossly intact, no focal deficits, no new deficit Musculoskeletal: normal tone, normal strength Psychiatric: normal affect, A&O x 3 Hosp A/P (1) C. difficile colitis Code(s): A04.72 - ENTEROCOLITIS D/T CLOSTRIDIUM DIFFICILE, NOT SPCF RECUR Status: Acute Plan: Continue Vancomycin/Flagyl, Probiotics (2) Abdominal pain Code(s): R10.9 - UNSPECIFIED ABDOMINAL PAIN Status: Acute Qualifiers: Abdominal location: generalized Qualified Code(s): R10.84 - Generalized abdominal pain Plan: Secondary to #1, see above for mgmt (3) Hepatitis C Code(s): B19.20 - UNSPECIFIED VIRAL HEPATITIS C WITHOUT HEPATIC COMA Status: Chronic Qualifiers: Viral hepatitis chronicity: chronic Plan: s/p therapy x 3 months (4) Thrombocytopenia Code(s): D69.6 - THROMBOCYTOPENIA, UNSPECIFIED Status: Chronic Plan: Chronic, stable, serial monitoring - Plan continue antibiotics, social worker aide, DVT proph w/SCDs Stable currently Continue Vancomycin Continue Flagyl Start Regular Diet AM lab: CBC
[2018-10-28] MEDS: Vancomycin HCl 25 MG/ML Oral PO SCH ×4 (03:46→20:25)
[2018-10-28] MEDS: metroNIDAZOLE 500 MG TAB PO SCH ×4 (05:41→23:39)
[2018-10-28 06:32] LABS: Hemoglobin 12.2 g/dL (14.0-18.0); Mean Corpuscular HGB CONC 32.8 g/dL (32.0-36.0); Mean Corpuscular Hemoglobin 31.9 pg (27.0-31.0); Mean Corpuscular Volume 97.3 fL (78.0-98.0); Mean Platelet Volume 7.7 fL (7.4-10.4); Platelet Count 84 thou/uL (130-400); RBC Distribution Width 12.5 % (11.5-14.5); Red Blood Cell (RBC) Count 3.81 mill/uL (4.70-6.10); White Blood Cell (WBC) Count 5.7 thou/uL (4.8-10.8)
[2018-10-28 06:46] LABS: Band 2 % (5-11); Eosinophils 6 % (0-10); Hypochromia SLIGHT = 6-15 cells (100X) (0-5/hpf); Lymphocytes 10 % (21-51); MDiff Complete? YES; Monocytes 10 % (0-10); Neutrophil 72 % (42-75); Platelet Morphology Comment Appears Decreased
[2018-10-28] MEDS: Saccharomyces boulardii 250 MG CAP PO SCH (09:25)
[2018-10-28] MEDS: Furosemide 20 MG TAB PO SCH ×2 (09:25→14:27)
[2018-10-28] MEDS: Lisinopril 20 MG TAB PO SCH (09:26)
[2018-10-28] MEDS: Carvedilol 3.125 MG TAB PO SCH ×2 (09:26→20:25)
[2018-10-28] MEDS: Folic Acid 1 MG TAB PO SCH (09:26)
[2018-10-28] MEDS: Rifaximin 550 MG TAB PO SCH ×2 (14:27→20:24)
--- NOTE | 2018-10-28 19:21 | PDOC.HOSPP ---
- Subjective Encounter Date: 10/28/18 Encounter Time: 19:20 Subjective: f/u for c. diff colitis on po Vancomycin and Flagyl. Feels better overall. Appetite improved today. - Objective Vital Signs & Weight: Vital Signs (12 hours) Temp Pulse Resp BP BP Pulse Ox 10/28/18 17:05 98.4 F 67 18 100/64 90 L 10/28/18 11:48 97.9 F 65 18 97/59 L 96 10/28/18 09:26 130/81 10/28/18 09:17 96 10/28/18 08:00 98.0 F 65 18 130/81 96 Weight Admit Weight 205 lb 9.6 oz Weight 205 lb 9.6 oz I&O: 10/27/18 10/28/18 10/29/18 06:59 06:59 06:59 Intake Total 2610 2220 1250 Balance 2610 2220 1250 Result Diagrams: 10/28/18 06:07 10/27/18 06:13 Additional Labs: Microbiology 10/25/18 Unknown Stool - Pending C. difficile GDH Antigen & Toxins - Final 10/25/18 Unknown Stool Stool Lactoferrin - Final 10/25/18 Unknown Stool Rapid Parasite Screen - Final 10/25/18 Unknown Stool Campylobacter Antigen Assay - Final 10/25/18 Unknown Stool Shiga Toxin Test - Final 10/24/18 19:32 Urine voided Urine Culture - Final NO GROWTH AT 36 HOURS 10/25/18 Unknown Stool Stool Culture - Preliminary 10/25/18 07:02 Venous blood - Right Hand Blood Culture - Preliminary NO GROWTH AT 48 HOURS 10/25/18 07:02 Venous blood - Left Hand Blood Culture - Preliminary NO GROWTH AT 48 HOURS Laboratory Tests 10/25/18 10/25/18 10/26/18 05:33 12:18 06:19 WBC 12.0 H Plt Count 73 L Sodium 134 L Carbon Dioxide 21 L Lactic Acid Ammonia 63 Tumor Marker AFP 10/26/18 10/26/18 10/26/18 06:19 09:12 13:09 WBC 12.6 H Plt Count 73 L Sodium Carbon Dioxide Lactic Acid 1.7 Ammonia Tumor Marker AFP 2.8 ROS - Medication Medications: Active Medications Generic Name Dose Route Start Last Admin Trade Name Freq PRN Reason Stop Dose Admin Acetaminophen 325 mg 10/25/18 07:29 10/26/18 16:47 Tylenol PO 325 mg Q4H PRN Administration Headache/Fever or Pain Carvedilol 3.125 mg 10/25/18 09:00 10/28/18 09:26 Coreg PO 3.125 mg BID [facility] Administration Cyanocobalamin 100 mcg 10/25/18 09:00 10/25/18 08:35 Vitamin B-12 IM Not Given Q28D [facility] Folic Acid 1 mg 10/25/18 09:00 10/28/18 09:26 Folvite PO 1 mg DAILY [facility] Administration Furosemide 20 mg 10/26/18 09:00 10/28/18 14:27 Lasix PO 20 mg 0900,1400 [facility] Administration Lisinopril 20 mg 10/25/18 09:00 10/28/18 09:26 Zestril PO 20 mg DAILY [facility] Administration Metoclopramide HCl 10 mg 10/25/18 17:52 10/25/18 22:27 Reglan IVP 10 mg Q6H PRN Administration Nausea/Vomiting Metronidazole 500 mg 10/27/18 18:00 10/28/18 17:28 Flagyl PO 500 mg Q6HR [facility] Administration Morphine Sulfate 2 mg 10/25/18 01:35 10/25/18 23:09 Morphine SLOW IVP 2 mg Q4H PRN Administration Severe Pain (7-10) Rifaximin 550 mg 10/25/18 09:00 10/28/18 14:27 Xifaxan PO 550 mg BID [facility] Administration Saccharomyces Boulardii 250 mg 10/27/18 09:00 10/28/18 09:25 Florastor PO 250 mg DAILY [facility] Administration Sodium Chloride 10 ml 10/25/18 09:00 10/28/18 09:27 Flush - Normal Saline IVF Not Given Q12HR [facility] Tramadol HCl 50 mg 10/25/18 17:49 10/26/18 16:47 Ultram PO 50 mg Q4H PRN Administration Pain Vancomycin HCl 125 mg 10/26/18 03:00 10/28/18 15:01 First Vancomycin PO 11/04/18 21:01 5 ml 0300,0900,1500,2100 [facility] Administration - Exam NAD, awake alert Eye: PERRL, anicteric sclera ENT: normocephalic atraumatic, no oropharyngeal lesions Neck: supple, symmetric, no JVD, no thyromegaly, no lymphadenopathy Heart: RRR, no murmur, no gallops, no rubs, normal peripheral pulses Respiratory: CTAB, no wheezes, no rales, no ronchi, normal chest expansion Gastrointestinal: soft, non-tender, non-distended, normal bowel sounds, no palpable masses Extremities: no cyanosis, no clubbing Skin: normal turgor, no lesions Neurological: CN's grossly intact, no focal deficits, no new deficit Musculoskeletal: normal tone, normal strength Psychiatric: normal affect, A&O x 3 Hosp A/P (1) C. difficile colitis Code(s): A04.72 - ENTEROCOLITIS D/T CLOSTRIDIUM DIFFICILE, NOT SPCF RECUR Status: Acute Plan: Continue Flagyl and Vancomycin, Continue probiotics (2) Abdominal pain Code(s): R10.9 - UNSPECIFIED ABDOMINAL PAIN Status: Acute Qualifiers: Abdominal location: generalized Qualified Code(s): R10.84 - Generalized abdominal pain Plan: Improved with tx for #1, supportive mgmt (3) Hepatitis C Code(s): B19.20 - UNSPECIFIED VIRAL HEPATITIS C WITHOUT HEPATIC COMA Status: Chronic Qualifiers: Viral hepatitis chronicity: chronic Plan: s/p tx for 3 months (4) Thrombocytopenia Code(s): D69.6 - THROMBOCYTOPENIA, UNSPECIFIED Status: Chronic Plan: chronic (5) Hepatic cirrhosis Code(s): K74.60 - UNSPECIFIED CIRRHOSIS OF LIVER Status: Chronic Plan: Continue Xifaxan, Lasix, Folate, Coreg - Plan continue antibiotics, case management social worker, DVT proph w/SCDs Stable currently Continue Vancomycin po Continue Flagyl po Start Regular Diet, low Na+ Continue Xifaxan 550mg BID Likely d/c in 24h
[2018-10-29] MEDS: Vancomycin HCl 25 MG/ML Oral PO SCH ×4 (03:01→20:23)
[2018-10-29] MEDS: metroNIDAZOLE 500 MG TAB PO SCH ×4 (05:21→23:46)
[2018-10-29] MEDS: Carvedilol 3.125 MG TAB PO SCH ×2 (08:41→20:23)
[2018-10-29] MEDS: Saccharomyces boulardii 250 MG CAP PO SCH (08:41)
[2018-10-29] MEDS: Rifaximin 550 MG TAB PO SCH ×2 (08:41→20:23)
[2018-10-29] MEDS: Furosemide 20 MG TAB PO SCH ×2 (08:41→14:52)
[2018-10-29] MEDS: Folic Acid 1 MG TAB PO SCH (08:41)
[2018-10-29] MEDS: Lisinopril 20 MG TAB PO SCH (08:41)
--- NOTE | 2018-10-29 11:56 | PDOC.HOSPP ---
- Subjective Encounter Date: 10/29/18 Encounter Time: 11:54 Subjective: still haveng diarrhea - Objective Vital Signs & Weight: Vital Signs (12 hours) Temp Pulse Resp BP BP Pulse Ox 10/29/18 08:41 138/77 10/29/18 08:39 98 10/29/18 07:34 97.9 F 74 16 138/77 98 Weight Admit Weight 205 lb 9.6 oz Weight 205 lb 9.6 oz I&O: 10/28/18 10/29/18 10/30/18 06:59 06:59 06:59 Intake Total 2220 1550 Balance 2220 1550 Result Diagrams: 10/28/18 06:07 10/27/18 06:13 ROS - Medication Medications: Active Medications Generic Name Dose Route Start Last Admin Trade Name Freq PRN Reason Stop Dose Admin Acetaminophen 325 mg 10/25/18 07:29 10/26/18 16:47 Tylenol PO 325 mg Q4H PRN Administration Headache/Fever or Pain Carvedilol 3.125 mg 10/25/18 09:00 10/29/18 08:41 Coreg PO 3.125 mg BID [facility] Administration Cyanocobalamin 100 mcg 10/25/18 09:00 10/25/18 08:35 Vitamin B-12 IM Not Given Q28D [facility] Folic Acid 1 mg 10/25/18 09:00 10/29/18 08:41 Folvite PO 1 mg DAILY [facility] Administration Furosemide 20 mg 10/26/18 09:00 10/29/18 08:41 Lasix PO 20 mg 0900,1400 [facility] Administration Lisinopril 20 mg 10/25/18 09:00 10/29/18 08:41 Zestril PO 20 mg DAILY [facility] Administration Metronidazole 500 mg 10/27/18 18:00 10/29/18 05:21 Flagyl PO 500 mg Q6HR [facility] Administration Morphine Sulfate 2 mg 10/25/18 01:35 10/25/18 23:09 Morphine SLOW IVP 2 mg Q4H PRN Administration Severe Pain (7-10) Rifaximin 550 mg 10/25/18 09:00 10/29/18 08:41 Xifaxan PO 550 mg BID [facility] Administration Saccharomyces Boulardii 250 mg 10/27/18 09:00 10/29/18 08:41 Florastor PO 250 mg DAILY [facility] Administration Sodium Chloride 10 ml 10/25/18 09:00 10/29/18 08:44 Flush - Normal Saline IVF Not Given Q12HR [facility] Tramadol HCl 50 mg 10/25/18 17:49 10/26/18 16:47 Ultram PO 50 mg Q4H PRN Administration Pain Vancomycin HCl 125 mg 10/26/18 03:00 10/29/18 08:41 First Vancomycin PO 11/04/18 21:01 5 ml 0300,0900,1500,2100 [facility] Administration - Exam awake alert Neck: JVD Heart: RRR, no murmur Respiratory: CTAB Gastrointestinal: soft, non-tender, normal bowel sounds Extremities: no edema Hosp A/P (1) C. difficile colitis Code(s): A04.72 - ENTEROCOLITIS D/T CLOSTRIDIUM DIFFICILE, NOT SPCF RECUR Status: Acute (2) Hepatitis C Code(s): B19.20 - UNSPECIFIED VIRAL HEPATITIS C WITHOUT HEPATIC COMA Status: Chronic Qualifiers: Viral hepatitis chronicity: chronic (3) Hepatic cirrhosis Code(s): K74.60 - UNSPECIFIED CIRRHOSIS OF LIVER Status: Chronic Qualifiers: Hepatic cirrhosis type: other cirrhosis Qualified Code(s): K74.69 - Other cirrhosis of liver (4) Coagulopathy Status: Acute - Plan cont po vancomycin and flagyl would like diarrhea to decrease prior todicharge
[2018-10-30] MEDS: Vancomycin HCl 25 MG/ML Oral PO SCH ×3 (02:50→14:10)
[2018-10-30] MEDS: metroNIDAZOLE 500 MG TAB PO SCH ×2 (05:23→11:24)
[2018-10-30 07:36] VITALS: TEMP 98.2
[2018-10-30] MEDS: Lisinopril 20 MG TAB PO SCH (07:53)
[2018-10-30] MEDS: Folic Acid 1 MG TAB PO SCH (07:53)
[2018-10-30] MEDS: Carvedilol 3.125 MG TAB PO SCH (07:53)
[2018-10-30] MEDS: Rifaximin 550 MG TAB PO SCH (07:53)
[2018-10-30] MEDS: Saccharomyces boulardii 250 MG CAP PO SCH (07:53)
[2018-10-30 07:54] VITALS: BP 138/77
[2018-10-30] MEDS: Furosemide 20 MG TAB PO SCH ×2 (07:54→14:10)
--- NOTE | 2018-10-30 13:39 | DIS ---
DATE OF ADMISSION: 10/26/2018 DATE OF DISCHARGE: 10/30/2018 [facility] admission for [facility] from the group home/senior care. DISPOSITION: Discharged to the senior care group home. 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 DISCHARGE MEDICATIONS: New, 1. Metronidazole 500 mg p.o. q.i.d. for 7 days. 2. Vancomycin 500 mg p.o. q.i.d. for 7 days. 3. Coreg 3.125 mg a day. 4. Folic acid 1 mg a day. 5. Lasix 20 mg a day. 6. Lisinopril 20 mg a day. 7. Phenergan 1 tablet p.o. b.i.d. p.r.n. 8. Xifaxan 3 tabs p.o. t.i.d. 9. Lactulose 30 mg p.o. b.i.d. ALLERGIES: NO KNOWN DRUG ALLERGIES. DIET: As tolerated. CODE STATUS: Full. HOSPITAL COURSE: [facility]. The patient presented with abdominal pain. The patient's studies revealed unremarkable CBC, except for thrombocytopenia. He had an INR of 1.5, on no anticoagulant. His chemistry, sodium 134, potassium 4.0, BUN and creatinine normal, bilirubin 2.1, AST 50. Lactic acid was initially elevated, but came down to 2.1 with 1 day of therapy. Microbiology revealed blood and urine cultures negative. Stools were positive for C. difficile toxin and antigen. The patient was started on p.o. vancomycin, Flagyl. He has improved dramatically in his hospital stay. He is now having soft stools. No abdominal pain. He is ready for discharge. Other reports, abdominal pelvis CT, cirrhosis with portal hypertension, varices, splenomegaly. Abdominal ultrasound, cholelithiasis, cirrhosis suspicious of liver mass. CONSULTATIONS: None. PROCEDURES: None. The patient is being discharged back to his incarceration facility on medications for C. difficile. He needs a referral to [facility] in [place] for possible evaluation for liver mass. The patient will be seen in followup at the facility. Job ID: [id number]
== END 2018-10-30 17:27 | DRG 372 ==
LOC: ERS 18:31 → 2SW 10-25 00:11 → OBSVTOIN 10-26 12:42 → T4-B 10-26 15:42
PROVIDERS: ADMIT Hospitalist; ATTEND Hospitalist
DX: A04.72 Enterocolitis due to Clostridium difficile, not specified as recurrent (principal); D68.9 Coagulation defect, unspecified; K76.6 Portal hypertension; N39.0 Urinary tract infection, site not specified; E87.1 Hypo-osmolality and hyponatremia; E87.2 Acidosis; I85.10 Secondary esophageal varices without bleeding; K74.60 Unspecified cirrhosis of liver; B18.2 Chronic viral hepatitis C; D69.6 Thrombocytopenia, unspecified; R16.1 Splenomegaly, not elsewhere classified; I10 Essential (primary) hypertension; K80.20 Calculus of gallbladder without cholecystitis without obstruction; D50.9 Iron deficiency anemia, unspecified; R63.4 Abnormal weight loss; Z68.30 Body mass index [BMI] 30.0-30.9, adult; Z79.899 Other long term (current) drug therapy; Z87.442 Personal history of urinary calculi
CPT/HCPCS: 36415; 36416; 71046; 74175; 74177; 76705; 80048; 80053; 80076; 81003; 81015; 82105; 82140; 83605; 83630; 83690; 84145; 85025; 85610; 85730; 87040; 87045; 87046; 87086; 87324; 87328; 87329; 87449; 87899; 90471; 90670; 96361; 96374; 96375; 96376; G0009; J0696; J2270; J2405; J2543; J2765; J3420; J3490; Q0169; Q9966; Q9967

== ENCOUNTER 2019-09-21 15:34 | Emergency (ER) | payer OTHER ==
[2019-09-21 16:23] LABS: Hemoglobin 7.3 g/dL (14.0-18.0); Mean Corpuscular HGB CONC 29.5 g/dL (32.0-36.0); Mean Corpuscular Hemoglobin 21.7 pg (27.0-31.0); Mean Corpuscular Volume 73.6 fL (78.0-98.0); RBC Distribution Width 17.2 % (11.5-14.5); Red Blood Cell (RBC) Count 3.35 mill/uL (4.70-6.10); White Blood Cell (WBC) Count 2.8 thou/uL (4.8-10.8)
[2019-09-21 16:27] LABS: INR-International Normal Ratio 1.3; PTT 35.1 sec (22.9-36.1)
[2019-09-21 16:41] LABS: ALT (SGPT) 16 U/L (8-55); AST (SGOT) 21 U/L (5-34); Albumin 3.1 g/dL (3.4-4.8); Alkaline Phosphatase 95 U/L (40-110); Anion Gap 7 mmol/L (10-20); BUN (Urea Nitrogen) 16 mg/dL (8.4-25.7); Bilirubin, Total 1.4 mg/dL (0.2-1.2); Calc. Creatinine Clearance 0 mL/min (70-130); Calcium 8.3 mg/dL (7.8-10.44); Carbon Dioxide 27 mmol/L (23-31); Chloride 108 mmol/L (98-107); Estimated GFR-MDRD Greater than 90; Globulin 3.4 g/dL (2.4-3.5); Glucose 127 mg/dL (80-115); Iron 17 ug/dL (65-175); Iron Binding Capacity, Total 429 mcg/dL (261-462); Potassium 4.2 mmol/L (3.5-5.1); Protein, Total 6.5 g/dL (5.8-8.1); Sodium 138 mmol/L (136-145)
[2019-09-21 16:46] LABS: Anisocytosis SLIGHT = 6-15 cells (100X) (0-5/hpf); Band 5 % (5-11); Eosinophils 9 % (0-10); Hypochromia MODERATE=16-30 cells (100X) (0-5/hpf); Lymphocytes 27 % (21-51); MDiff Complete? YES; Mean Platelet Volume 6.5 fL (7.4-10.4); Microcytosis SLIGHT = 6-15 cells (100X) (0-5/hpf); Monocytes 15 % (0-10); Neutrophil 43 % (42-75); Ovalocytes SLIGHT = 2-5 cells (100X) (0-1/hpf); Platelet Count 53 thou/uL (130-400); Platelet Morphology Comment Appears Decreased; Polychromasia SLIGHT = 2-3 cells (100X) (0-2/hpf); Reactive Lymphocytes 1 % (0-10); Reflex for Review?? YES; Target Cells SLIGHT = 2-5 cells (100X) (0-1/hpf); Tear Drops SLIGHT = 2-5 cells (100X) (0-1/hpf)
== END 2019-09-21 19:55 ==
LOC: ERS 15:34
DX: D64.9 Anemia, unspecified (principal); D50.9 Iron deficiency anemia, unspecified; I10 Essential (primary) hypertension; Z79.899 Other long term (current) drug therapy
CPT/HCPCS: 36415; 36430; 80053; 82274; 82728; 83540; 83550; 85025; 85060; 85610; 85730; 86850; 86900; 86901; 93005; P9016